=== PATIENT | female | born 1980 | race Caucasian/White ===

== ENCOUNTER 2016-12-15 09:54 | Day surgery (SDC) | payer MEDICAID ==
[~2016-12-15] VITALS: Ht 182.9 cm; Wt 123.6 kg
[2016-12-15] MEDS ORDERED: ONDANSETRON 2MG/ML, 2ML IVPush ONE ×2 (10:30→15:00)
[2016-12-15] MEDS ORDERED: SODIUM CHLORIDE 0.9% 1,000ML IVBOLUS ONE (10:30)
[2016-12-15] MEDS ORDERED: MAALOX/HYOSCYAMINE/LIDOCAINE 45 ML BTL PO ONE (10:30)
[2016-12-15] MEDS ORDERED: SODIUM CHLORIDE FLUSH 10ML SYR IVF ONE (10:30)
[2016-12-15 10:35] LABS: HEMATOCRIT 48.4 % (34.6-47.8); HEMOGLOBIN 16.2 g/dL (11.7-16.4); WHITE BLOOD COUNT 13.1 x10^3/uL (3.4-10)
[2016-12-15 10:57] LABS: IS PT STATUS REG ER OR PRE ER? YES
[2016-12-15] MEDS ORDERED: ONDANSETRON 2MG/ML, 2ML ONE ×2 (11:30→15:36)
[2016-12-15] MEDS ORDERED: MAALOX/HYOSCYAMINE/LIDOCAINE 45 ML BTL ONE (11:30)
[2016-12-15 11:44] LABS: ASPARTATE AMINO TRANSFERASE 25 U/L (15-37); BLOOD UREA NITROGEN 8 mg/dL (7-18)
[2016-12-15] MEDS ORDERED: CEFOTETAN PMX 1GM/50ML 50 ML IV ONE (13:30)
[2016-12-15] MEDS ORDERED: OMNIPAQUE 350 MG/ML, 100ML BOTTLE ONE (13:45)
[2016-12-15] MEDS ORDERED: CEFOTETAN PMX 1GM/50ML 50 ML ONE (13:46)
[2016-12-15] MEDS ORDERED: SODIUM CHLORIDE FLUSH 10ML SYR IVF PRN (14:30)
[2016-12-15 14:33] LABS: PATH.CAST-FLAG NOT PRESENT; SPERM-FLAG NOT PRESENT; SRC-FLAG NOT PRESENT; XTAL-FLAG NOT PRESENT; YLC-FLAG NOT PRESENT
[2016-12-15] MEDS ORDERED: FENTANYL PF 250 MCG/5ML ONE (14:59)
[2016-12-15] MEDS ORDERED: MIDAZOLAM 1 MG/ML, 2ML ONE (14:59)
[2016-12-15] MEDS ORDERED: HYDROmorphone 1 MG/ML, 1ML IVPush PRN (15:00)
[2016-12-15] MEDS ORDERED: BUPIVACAINE/PF 0.5% ONE (15:24)
[2016-12-15] MEDS ORDERED: EPINEPHRINE 1 MG/ML, 1ML ONE (15:24)
[2016-12-15] MEDS ORDERED: SUCCINYLCHOLINE 20 MG/ML, 10ML ONE (15:36)
[2016-12-15] MEDS ORDERED: METOCLOPRAMIDE 5 MG/ML, 2ML ONE (15:36)
[2016-12-15] MEDS ORDERED: ROCURONIUM 10 MG/ML ONE (15:36)
[2016-12-15] MEDS ORDERED: KETOROLAC 30 MG/1 ML ONE (15:36)
[2016-12-15] MEDS ORDERED: GLYCOPYRROLATE 0.2MG/1ML ONE (15:36)
[2016-12-15] MEDS ORDERED: NEOSTIGMINE 1 MG/ML, 10ML ONE (15:36)
[2016-12-15] MEDS ORDERED: DEXAMETHASONE 4 MG/ML, 1ML ONE (15:36)
[2016-12-15] MEDS ORDERED: PROPOFOL 10 MG/ML, 20ML ONE (15:36)
[2016-12-15] MEDS ORDERED: HYDROmorphone 1 MG/ML, 1ML IV PRN (16:30)
[2016-12-15] MEDS ORDERED: hydrALAzine 20 MG/ML, 1ML IV PRN (16:30)
[2016-12-15] MEDS ORDERED: ALBUTEROL/IPRATROPIUM 2.5MG/0.5MG, 3 ML NPPB PRN (16:30)
[2016-12-15] MEDS ORDERED: MEPERIDINE/PF 25MG/0.5ML IVPush PRN (16:30)
[2016-12-15] MEDS ORDERED: KETOROLAC 30 MG/1 ML IVPush PRN (16:30)
[2016-12-15] MEDS ORDERED: LABETALOL 5MG/ML, 20ML IV PRN (16:30)
[2016-12-15] MEDS ORDERED: FENTANYL PF 100 MCG/2ML IV PRN (16:30)
[2016-12-15] MEDS ORDERED: HYDROcodone/APAP 5/325 TABLET PO PRN (16:30)
[2016-12-15] MEDS ORDERED: LORazepam 2 MG/ML, 1ML IVPush PRN (16:30)
[2016-12-15] MEDS ORDERED: OXYcodone 5 MG/5 ML ORAL.SOL UDC PO PRN (16:30)
[2016-12-15] MEDS ORDERED: MIDAZOLAM 1 MG/ML, 2ML IV PRN (16:30)
[2016-12-15] MEDS ORDERED: ONDANSETRON 2MG/ML, 2ML IVPush PRN ×2 (16:30)
[2016-12-15] MEDS ORDERED: PROMETHAZINE 25 MG/ML, 1ML IV PRN (16:30)
[2016-12-15] MEDS ORDERED: MEPERIDINE/PF 50 MG/ML ONE (16:31)
[2016-12-15] MEDS: LACTATED RINGERS 1,000 ML IV SCH (17:35)
[2016-12-15] MEDS: morphine SULFATE 10 MG/ML, 1ML IVPush PRN ×2 (17:35→18:02)
[2016-12-15 18:33] VITALS: BP 106/73
[2016-12-16] MEDS: LACTATED RINGERS 1,000 ML IV SCH ×2 (00:26→08:26)
[2016-12-16 00:45] VITALS: BP 118/78
[2016-12-16 03:43] VITALS: BP 108/71
[2016-12-16 04:30] VITALS: BP 108/70
[2016-12-16 07:51] VITALS: BP 113/74
[2016-12-16] MEDS ORDERED: HYDR-3240 PO (10:29)
== END 2016-12-16 11:06 | disposition home or self-care (01) ==
LOC: OR 17:12 → UNDOADMIN 17:17 → SDC 17:17 → EDIP 17:17 → 4NOR 17:18 → DCLOUNGE 12-16 10:28 → SDC 12-16 11:06 → UNDODISIN 12-16 11:06
PROVIDERS: ATTEND Thoracic Surgery (Cardiothoracic Vascular Surgery)
DX: K80.12 Calculus of gallbladder with acute and chronic cholecystitis without obstruction (principal); E11.9 Type 2 diabetes mellitus without complications; E03.9 Hypothyroidism, unspecified; Z88.0 Allergy status to penicillin
CPT/HCPCS: 36415; 71020; 71275; 76700; 80053; 81001; 83690; 84484; 84703; 85025; 85379; 87086; 88304; 93005; 96361; 96365; 96375; C1729; J0171; J1100; J1885; J2175; J2250; J2405; J2704; J2710; J3010; J3490; Q9967; J0330; J2270; J2765; J7030; J7120; S0074

== ENCOUNTER 2017-01-12 11:46 | Emergency (ER) | payer MEDICAID ==
[~2017-01-12] VITALS: Ht 182.9 cm; Wt 118.0 kg
[~2017-01-12 11:46] MED LIST: HYDR-3240 PO
[2017-01-12 11:48] VITALS: BP 136/88
== END 2017-01-12 12:29 | disposition home or self-care (01) ==
LOC: ED 12:03
DX: K02.9 Dental caries, unspecified (principal); F17.210 Nicotine dependence, cigarettes, uncomplicated
CPT/HCPCS: 99283

== ENCOUNTER 2017-06-06 21:36 | Emergency (ER) | payer SELFPAY ==
[~2017-06-06] VITALS: Ht 182.9 cm; Wt 118.0 kg
[2017-06-06 21:39] VITALS: BP 123/86
[2017-06-06] MEDS ORDERED: DEXAMETHASONE 4 MG TABLET PO STA (22:25)
[2017-06-06] MEDS ORDERED: DEXAMETHASONE 4 MG TABLET ONE (22:27)
== END 2017-06-06 22:55 | disposition home or self-care (01) ==
LOC: ED 22:31
DX: H10.33 Unspecified acute conjunctivitis, bilateral (principal); B30.9 Viral conjunctivitis, unspecified; J02.9 Acute pharyngitis, unspecified; F17.210 Nicotine dependence, cigarettes, uncomplicated
CPT/HCPCS: 99283